=== PATIENT | female | born 1980 | race Hispanic/Latino ===

== ENCOUNTER 2018-04-07 13:38 | Inpatient (IN) | payer BC ==
[2018-04-07 13:43] VITALS: BMI 30.9
--- NOTE | 2018-04-07 16:06 | ED PDOC ---
HPI: Psych/Substance Abuse Time Seen by Provider: 04/07/18 15:21 Chief Complaint (Nursing): Psychiatric Evaluation Chief Complaint (Provider): Psychiatric Evaluation History Per: Patient History/Exam Limitations: no limitations Onset/Duration Of Symptoms: Days (x3 weeks) Additional Complaint(s): Zhane Marino is a 37 year old female with a past medical history of depression, who presents to the emergency department complaining of having increased feelings of depression for the past x3 weeks. She states she feels like not getting out of bed and that the world would be fine without her. Patient denies any direct SI or any suicidal attempts. 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 PMD: No provider Past Medical History Reviewed: Historical Data, Nursing Documentation, Vital Signs Vital Signs: Last Vital Signs Temp 97 F L 04/07/18 13:41 Pulse 85 04/07/18 13:41 Resp 18 04/07/18 13:41 BP 138/96 H 04/07/18 13:41 Pulse Ox 98 04/07/18 13:41 - Medical History PMH: Depression - Surgical History Surgical History: No Surg Hx - Family History Family History: States: Unknown Family Hx - Home Medications Home Medications: Ambulatory Orders Medication Instructions Recorded Cholecalciferol (Vitamin D3) 10,000 unit PO DAILY 04/07/18 [Vitamin D3] Olanzapine [Zyprexa] 5 mg PO HS 04/07/18 PARoxetine CR [Paxil CR] 25 mg PO HS 04/07/18 RX: Spironolactone [Aldactone] 25 mg PO DAILY 04/07/18 RX: diltiaZEM CD [Cardizem CD] 120 mg PO DAILY 04/07/18 Simvastatin 10 mg PO HS 04/07/18 - Allergies Allergies/Adverse Reactions: Allergies Allergy/AdvReac Type Severity Reaction Status Date / Time No Known Allergies Allergy Verified 04/07/18 13:44 Review of Systems ROS Statement: Except As Marked, All Systems Reviewed And Found Negative Psych: Positive for: Depression. Negative for: Suicidal ideation Physical Exam - Reviewed Nursing Documentation Reviewed: Yes Vital Signs Reviewed: Yes - Physical Exam Appears: Positive for: Non-toxic, No Acute Distress Head Exam: Positive for: ATRAUMATIC, NORMOCEPHALIC Skin: Positive for: Normal Color, Warm, Dry Cardiovascular/Chest: Positive for: Regular Rate, Rhythm. Negative for: Murmur Respiratory: Positive for: Normal Breath Sounds. Negative for: Respiratory Distress Neurologic/Psych: Positive for: Alert, Oriented (x3). Negative for: Motor/Sensory Deficits - Laboratory Results Result Diagrams: 04/07/18 16:15 04/07/18 16:15 - ECG O2 Sat by Pulse Oximetry: 98 (RA) Pulse Ox Interpretation: Normal Medical Decision Making Medical Decision Making: Initial Time: 15:52 Plan: --Alcohol Serum --CMP --Urine drug screen --CBC with differential --UA --Crisis evaluation Time: 18:07 Patient was seen by crisis who discussed case with Dr. Mcfadden; arrangements have been made for patient admission. Time: 18:09 CXR FINDINGS: LUNGS: No active pulmonary disease. PLEURA: No significant pleural effusion identified, no pneumothorax apparent. CARDIOVASCULAR: No atherosclerotic calcification present Normal. OSSEOUS STRUCTURES: No significant abnormalities. VISUALIZED UPPER ABDOMEN: Normal. OTHER FINDINGS: None. IMPRESSION: No active disease. Time: 18:37 EKG is NSR a 83 with no acute ischemic changes Scribe Attestation: Documented by Riaz Castro, acting as a scribe for Lavinia Wood PA-C. Provider Scribe Attestation: All medical record entries made by the Scribe were at my direction and personally dictated by me. I have reviewed the chart and agree that the record accurately reflects my personal performance of the history, physical exam, medical decision making, and the department course for this patient. I have also personally directed, reviewed, and agree with the discharge instructions and disposition. Disposition - Clinical Impression Clinical Impression: Major depression - Patient ED Disposition Is Patient to be Admitted: Yes - Disposition Disposition Time: 18:59 Condition: STABLE
[2018-04-07 16:33] LABS: SQUAMOUS EPITHIAL < 1 /hpf (0-5); URINE BACTERIA RARE (<OCC); URINE BILIRUBIN NEGATIVE (NEGATIVE); URINE BLOOD SMALL (NEGATIVE); URINE CLARITY CLEAR (Clear); URINE COLOR YELLOW (YELLOW); URINE GLUCOSE (UA) NEG (Normal); URINE LEUKOCYTE ESTERASE NEG Leu/uL (Negative); URINE PROTEIN NEGATIVE (NEGATIVE); URINE UROBILINOGEN 0.2-1.0 mg/dL (0.2-1.0)
[2018-04-07 16:36] LABS: BASO # 0.1 K/uL (0.0-0.2); BASO % 0.6 % (0.0-2.0); EOS % 0.3 % (0.0-4.0); HEMOGLOBIN 14.4 g/dL (12.0-16.0); LYMPH # 2.4 K/uL (1.0-4.3); LYMPH % 27.3 % (20.0-40.0); MEAN CELL VOLUME 90.4 fl (81.0-99.0); MEAN CORPUSCULAR HEMOGLOBIN 30.5 pg (27.0-31.0); MEAN CORPUSCULAR HGB CONC 33.8 g/dL (33.0-37.0); MEAN PLATELET VOLUME 7.1 fl (7.2-11.7); MONO # 0.7 K/uL (0.0-0.8); MONO % 7.7 % (0.0-10.0); NEUT # 5.6 K/uL (1.8-7.0); NEUT % 64.1 % (50.0-75.0); NRBC % 0.1 % (0.0-0.0); RBC 4.72 Mil/uL (3.80-5.20); RED CELL DISTRIBUTION WIDTH 13.3 % (11.5-14.5); WHITE BLOOD COUNT 8.7 K/uL (4.8-10.8)
[2018-04-07 16:43] LABS: ALB/GLOB RATIO 1.4 (1.0-2.1); ALBUMIN 4.7 g/dL (3.5-5.0); ALT/SGPT 31 U/L (9-52); AST/SGOT 22 U/L (14-36); BLOOD UREA NITROGEN 18 mg/dl (7-17); CALCIUM 9.7 mg/dL (8.4-10.2); GFR NON-AFRICAN AMERICAN > 60
[2018-04-07 16:55] LABS: BARBITURATES, UR NEGATIVE (NEGATIVE); BENZODIAZEPINES, UR NEGATIVE (NEGATIVE); OPIATES, UR NEGATIVE (NEGATIVE); PHENCYCLIDINE, UR NEGATIVE (NEGATIVE)
--- NOTE | 2018-04-07 18:12 | RAD ---
Date of service: 04/07/2018 HISTORY: medical clearance COMPARISON: No prior. FINDINGS: LUNGS: No active pulmonary disease. PLEURA: No significant pleural effusion identified, no pneumothorax apparent. CARDIOVASCULAR: No atherosclerotic calcification present Normal. OSSEOUS STRUCTURES: No significant abnormalities. VISUALIZED UPPER ABDOMEN: Normal. OTHER FINDINGS: None. IMPRESSION: No active disease.
[2018-04-07 20:24] VITALS: O2SAT 99
[2018-04-07] MEDS ORDERED: Magnesium Hydroxide Susp 30 ml UD PO PRN (20:43)
[2018-04-07] MEDS ORDERED: Alum-Mag Hydrox-Simethicone Susp (30 mL) PO PRN (20:43)
[2018-04-07] MEDS ORDERED: DiphenhydrAMINE 50 mg/ml Inj IM PRN (20:43)
--- NOTE | 2018-04-07 20:56 | PCM.BM ---
<Rosy Sarmiento - Last Filed: 04/07/18 20:54> Treatment Plan Problems - Problems identified on initial assessmt Hopelessness/Helplessness Date Initiated: 04/07/18 Time Initiated: 20:54 Assessment reference: NA Status: Active Altered Sleep Date Initiated: 04/07/18 Time Initiated: 20:55 Assessment reference: NA Status: Active Less than optimal nutrition Date Initiated: 04/07/18 Time Initiated: 20:55 Assessment reference: NA Status: Active Ineffective coping Date Initiated: 04/07/18 Time Initiated: 20:56 Assessment reference: NA Status: Active Treatment assets and liabiliti Patient Assests: cooperative, educated, self-reliant, ADL independent, good support system, negotiates basic needs, good past tx response, cognitively intact Patient Liabilities: live alone - Milieu Protocol Maintain good personal hygiene: daily Encourage regular showers, daily Remind patient to perform daily oral care, other Assist patient to perform ADL's (prn) Conduct patient checks and document Observation sheet: Q15 minutes Maintain personal safety: every shift Educate patient to report safety concerns to staff, every shift Monitor environment for contraband/sharps Medication safety: Monitor for expected outcome, potential side effects: every shift, Assess barriers to learning: every shift, Assess readiness for medication education: every shift <Slim Glasgow - Last Filed: 04/10/18 16:53> Family Contact Family involvement: Family/SO is involved Family contact: Patient agrees to contact, Family has been contacted by patient, Telephone contact initiated by staff Family contact name: Charito - Mother Family contacted how many times per week?: 5 Family contact comment: Truck Mechanic Apprentice spoke with pt's mother, Charito [phone]. on 04/09 and 04/10 to discuss pt's condition, medication changes and plans for aftercare. Pt's mother reported she speaks and sees pt regularly and was aware that pt has been depressed for some time. Pt's mother was not aware of pt's suicidality, but does not feel that pt would act on these impulses. Charito reported that pt recently began seeing a new psychiatrist and they do not have the best therapeutic relationship. Pt's mother reported that pt also becomes very depressed 7-10 days before her period begins. Visiting hours discussed and creative services writer explained that since pt's family lives far they can visit pt outside of visiting hours as per Susan Celeste. Truck Mechanic Apprentice also discussed with pt's mother staff's recommendation that pt attend a PHP following discharge. Staff recommended [facility] and concerns with missing work and finances discussed with pt's mother. Charito reported that she intended to visit pt on Friday, 04/11. [phone]. - Goals for Treatment Patient goals for treatment: Pt unable to provide specific goals, but voiced repeatedly that she wants her depression minimized by medications. Discharge/Continuing Care - Education Needs Education Needs: Family Medication, Family Diagnosis/Disease Process, Family Coping Skills, Family Community resources, Family Aftercare Safety Plan, Patient Medication, Patient Diagnosis/Disease Process, Patient Coping Skills, Patient Community resources, Patient Aftercare Safety Plan - Discharge Discharge Criteria: Tolerates medication w/o severe side effects, Free of Suicidal thoughts, Reduction of target symptoms Discharge to:: Home - Treatment Team Participation Patient/Family/SO Statement: 04/10/18 16:54 Pt seen in treatment team on 04/08/18. Pt presented as depressed and irritable, and spoke desperately about wanting to feel her depression decreased. Pt repor michelle poor energy, no motivation, and feeling like a prisoner to her depression. Medication changes of possible Effexor and Ability discussed instead of Prozac and Paxil as these two medications can throw pt into a manic episode.Dr. Lock discussed giving pt a preliminary diagnosis of Bipolar II. Discussed with Family/SO: Yes Was Patient/Family/SO present at Treatment Team Meeting: Yes <Vasu Lock - Last Filed: 04/13/18 13:37> - Diagnosis (1) Depression (emotion) Status: Acute Interventions: psychotherapy, pharmacotherapy 04/13/18 13:37
[2018-04-08 08:40] LABS: T4 12.4 ug/dl (5.5-11.0)
[2018-04-08] MEDS ORDERED: Venlafaxine 37.5 mg ER Cap PO STA (16:08)
--- NOTE | 2018-04-08 17:19 | PCM.PSYCH ---
Initial Psychiatric Evaluation - Initial Psychiatric Evaluation Chief Complaint (in patient's own words): I am unable to function History of Present Illness and Precipitating Events: pt is 37 ys old female with previous diagnosis of bipolar II disorder and cannabis and alcohol abuse in remission, pt reported has been for past three weeks increasingly depressed, low energy increased sleep , poor motivation anhedonia and poor interest private psychiatrist recently changed medication with increase in paxil dose, pt on day of evaluation started having passive suicidal ideation , was referred to ER for evaluation pt on unit continues to report passive suicidal ideation without active plan , tearful with low energy , poor motivation, denied command hallucinations Current Medications: Active Medications Generic Name Dose Route Start Last Admin Trade Name Freq PRN Reason Stop Dose Admin Acetaminophen 650 mg 04/07/18 20:43 Tylenol 325mg Tab PO Q4 PRN pain 4-7 Al Hydrox/Mg Hydrox/Simethicone 30 ml 04/07/18 20:43 Maalox Plus 30 Ml PO Q4 PRN Dyspepsia Diphenhydramine HCl 50 mg 04/07/18 20:43 Benadryl IM Q6 PRN Extrapyramidal S/S Unable PO Diphenhydramine HCl 50 mg 04/07/18 20:43 Benadryl PO Q6 PRN Extrapyramidal Symptoms Diphenhydramine HCl 50 mg 04/07/18 20:43 04/07/18 21:25 Benadryl PO 50 mg HS PRN Administration Sleep Gabapentin 100 mg 04/08/18 16:10 Neurontin PO TID PRN Anxiety Haloperidol 5 mg 04/07/18 20:43 Haldol PO Q4 PRN Agitation Haloperidol Lactate 5 mg 04/07/18 20:43 Haldol IM Q4 PRN Agitation, Unable to Take PO Lorazepam 1 mg 04/07/18 20:43 Ativan IM Q6 PRN Anxiety/Agitation,Unable PO Lorazepam 1 mg 04/07/18 20:43 04/08/18 08:29 Ativan PO 1 mg Q6 PRN Administration Anxiety/Agitation Magnesium Hydroxide 30 ml 04/07/18 20:43 Milk Of Magnesia PO HS PRN Constipation Olanzapine 7.5 mg 04/08/18 22:00 Zyprexa PO HS MARY Venlafaxine HCl 37.5 mg 04/09/18 09:00 Effexor Xr PO DAILY MARY Past Psychiatric History - Past Psychiatric History Explanation of prior treatment: pt has hx of one hospitalizations at age 14 History of ETOH/Drug Use: hx of alcohol and cannabis abuse Pertinent Medical Hx (Current Medical&Sleep Prob, Allergies): Allergies Allergy/AdvReac Type Severity Reaction Status Date / Time No Known Allergies Allergy Verified 04/07/18 13:44 Cholecalciferol (Vitamin D3) [Vitamin D3] 10,000 unit PO DAILY 04/07/18 Cyanocobalamin (Vitamin B-12) [Vitamin B-12] 1,000 mcg PO DAILY 04/07/18 Olanzapine [Zyprexa] 5 mg PO HS 04/07/18 PARoxetine CR [Paxil CR] 25 mg PO HS 04/07/18 Simvastatin 10 mg PO HS 04/07/18 Spironolactone [Aldactone] 25 mg PO DAILY 04/07/18 diltiaZEM CD [Cardizem CD] 120 mg PO DAILY 04/07/18 Mental Status Examination - Personal Presentation Personal Presentation: Looks stated age - Affect Affect: Constricted, Depressed - Motor Activity Motor Activity: Psychomotor Retardation - Reliability in Providing Information Reliability in Providing Information: Fair - Speech Speech: Relevant - Mood Mood: Depressed, Anxious - Formal Thought Process Formal Thought Process: Circumstantial - Obsessions/Compulsions Obsessions: No Compulsions: No - Cognitive Functions Orientation: Person, Place, Situation Sensorium: Alert - Strength & Assets Inventory Strength & Assets Inventory: Employment history - Limitations Additional comments: partial compliance DSM 5 DX - DSM 5 DSM 5 Diagnosis: bipolar ii disorder MRE depressed - Recommended/Plan of Treatment Treatment Recommendations and Plan of Treatment: zyprexa 7.5mg qhs effexor xr 37.5mg daily CBT group and supportive therapy internal medicine consult
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
[2018-04-08] MEDS: Pravastatin Sodium 20 MG TAB PO SCH (21:05)
[2018-04-09] MEDS: Cholecalciferol 1,000 INTLU TAB PO SCH (08:50)
[2018-04-09] MEDS: Venlafaxine 37.5 mg ER Cap PO SCH (08:54)
[2018-04-09] MEDS: diltiaZEM 120 mg/24 Hours CD Cap PO SCH (08:56)
--- NOTE | 2018-04-09 14:27 | PCM.PYCHPN ---
Psychiatric Progress Note - Psychiatric Progress Note Patient seen today, length of contact: Pt evaluated, case discussed w/ team, chart reviewed Patient Chief Complaint: "I'm depressed." Problems Identified/Issues Discussed: Pt continues to report feeling depressed w/ low mood, constricted affect, low energy and continued intermittent suicidal ideation w/o current plan/intent. She denies current adverse effects to medications. No AH/VH. Medication Change: No Medical Record Reviewed: Yes Consults ordered or reviewed: Medicine Mental Status Examination - Cognitive Function Orientation: Person, Place, Situation, Time Memory: Intact Attention: WNL Concentration: WNL Association: [facility] Fund of Knowledge: [facility] Decription of patient's judgement and insights: Fair I/J - Mood Mood: Depressed, Anxious - Affect Affect: Constricted, Depressed - Formal Thought Process Formal Thought Process: Circumstantial Psychotic Thoughts and Behaviors: Denies AH/VH - Suicidal Ideation Suicidal Ideation: Yes Plan: No current plan/intent - Homicidal Ideation Homicidal Ideation: No Goal/Treatment Plan - Goal/Treatment Plan Need for Continued Stay: Remain at risks for inpatient hospitalization, Severe depression anxiety Progress Toward Problem(s) and Goals/Treatment Plan: Bipolar II Disorder -Continue Zyprexa, Effexor -Individual and group therapy -Medicine consult -Psychoeducation -Disposition planning
[2018-04-09] MEDS: Pravastatin Sodium 20 MG TAB PO SCH (21:12)
[2018-04-10] MEDS: diltiaZEM 120 mg/24 Hours CD Cap PO SCH (08:56)
[2018-04-10] MEDS: Venlafaxine 37.5 mg ER Cap PO SCH (08:57)
[2018-04-10] MEDS: Cholecalciferol 1,000 INTLU TAB PO SCH (08:58)
[2018-04-10] MEDS ORDERED: Venlafaxine 37.5 mg ER Cap PO STA (11:37)
--- NOTE | 2018-04-10 14:04 | PCM.PYCHPN ---
Psychiatric Progress Note - Psychiatric Progress Note Patient seen today, length of contact: Pt evaluated, case discussed w/ team, chart reviewed Patient Chief Complaint: I still have no energy and feeling anxious Problems Identified/Issues Discussed: pt evaluated with treatment team continues to present with depressed mood , anhedonia, poor motivation and increased anxiety, discussed increasing effexor and zyprexa, no reported side effects, discussed with pt starting [facility] on discharge encouraged pt to attend groups, pt denied any current perceptual disturbances, denied active thoughts of self harm on the unit Medical Problems: pt has hx of one hospitalizations at age 14 DSM 5 Symptoms Update: bipolar II disorder depressed Medication Change: Yes (increase effxor ) Medical Record Reviewed: Yes Mental Status Examination - Cognitive Function Orientation: Person, Place, Situation, Time Memory: Intact Attention: WNL Concentration: WNL Association: WNL Fund of Knowledge: WNL - Mood Mood: Depressed, Anxious - Affect Affect: Constricted, Depressed - Speech Speech: Soft - Formal Thought Process Formal Thought Process: Circumstantial Psychotic Thoughts and Behaviors: pt denied perceptual disturbances, non elicited - Suicidal Ideation Suicidal Ideation: Yes - Homicidal Ideation Homicidal Ideation: No Goal/Treatment Plan - Goal/Treatment Plan Need for Continued Stay: Remain at risks for inpatient hospitalization, Severe depression anxiety Progress Toward Problem(s) and Goals/Treatment Plan: increase zyprexa 10mg qhs increase effexor xr 75mg daily CBT group and supportive therapy referral to [facility] on discharge
[2018-04-10] MEDS: Pravastatin Sodium 20 MG TAB PO SCH (21:09)
[2018-04-11] MEDS: Venlafaxine 75 mg ER Cap PO SCH (09:15)
[2018-04-11] MEDS: Cholecalciferol 1,000 INTLU TAB PO SCH (09:15)
--- NOTE | 2018-04-11 16:18 | PCM.PYCHPN ---
Psychiatric Progress Note - Psychiatric Progress Note Patient seen today, length of contact: Pt evaluated, case discussed w/ team, chart reviewed Patient Chief Complaint: feeling decreased motivation decreased mood reports both depression and anxiety pt was seen to have visit with person reported to be mother Problems Identified/Issues Discussed: alteration in mood alteration in coping Medical Problems: per chart pt with reported hx of hypertension Diagnostic Results: per psychiatry per medicine per nursing per social work per nursing DSM 5 Symptoms Update: decreased mood anxiety Medication Change: No Medical Record Reviewed: Yes Consults ordered or reviewed: pt seen by hospitalist Mental Status Examination - Cognitive Function Orientation: Person, Place, Situation, Time Memory: Intact Attention: WNL Concentration: WNL Association: WNL Fund of Knowledge: [facility] Decription of patient's judgement and insights: impaired - Mood Mood: Depressed, Anxious - Affect Affect: Constricted, Depressed - Speech Speech: Soft - Formal Thought Process Formal Thought Process: Circumstantial - Suicidal Ideation Suicidal Ideation: Yes Plan: no cam plan contracts for safety - Homicidal Ideation Homicidal Ideation: No Goal/Treatment Plan - Goal/Treatment Plan Need for Continued Stay: Remain at risks for inpatient hospitalization, Severe depression anxiety Progress Toward Problem(s) and Goals/Treatment Plan: inpt milieu vital signs and clinical observation per protocol and per clinical status review effexor with pt generally to address both depression and anxiety dose may need to gradually increased to 150mg po daily -pt with reported hx of hypertension staff will have to assess vital signs per clinical status discharge planning in progress Estimated Date of D/C: 04/16/18 - Smoking Cessation Smoking Cessation Initiated: No Reason for not providing: defers
[2018-04-11] MEDS: diltiaZEM 120 mg/24 Hours CD Cap PO SCH (17:35)
[2018-04-11] MEDS: Pravastatin Sodium 20 MG TAB PO SCH (21:01)
[2018-04-12] MEDS: Cholecalciferol 1,000 INTLU TAB PO SCH (09:35)
[2018-04-12] MEDS: Venlafaxine 75 mg ER Cap PO SCH (09:38)
[2018-04-12] MEDS: diltiaZEM 120 mg/24 Hours CD Cap PO SCH (09:41)
--- NOTE | 2018-04-12 17:19 | PCM.PYCHPN ---
Psychiatric Progress Note - Psychiatric Progress Note Patient seen today, length of contact: Pt evaluated, case discussed w/ team, chart reviewed Patient Chief Complaint: feeling less decreased motivation somewhat less depression and anxiety sleep improving had reported positive visit with parents today. staff report pt rx adherent has been seen about unit Problems Identified/Issues Discussed: alteration in mood alteration in coping Medical Problems: per chart pt with reported hx of hypertension Diagnostic Results: per psychiatry per medicine per nursing per social work per nursing DSM 5 Symptoms Update: somewhat improving mood still with anhedonia Medication Change: No Medical Record Reviewed: Yes Consults ordered or reviewed: pt seen by hospitalist Mental Status Examination - Cognitive Function Orientation: Person, Place, Situation, Time Memory: Intact Attention: WNL Concentration: WNL Association: [facility] Fund of Knowledge: [facility] Decription of patient's judgement and insights: impaired - Mood Mood: Depressed, Anxious - Affect Affect: Constricted, Depressed - Speech Speech: Soft - Formal Thought Process Formal Thought Process: Circumstantial - Suicidal Ideation Suicidal Ideation: No - Homicidal Ideation Homicidal Ideation: No Goal/Treatment Plan - Goal/Treatment Plan Need for Continued Stay: Remain at risks for inpatient hospitalization, Severe depression anxiety Progress Toward Problem(s) and Goals/Treatment Plan: inpt milieu vital signs and clinical observation per protocol and per clinical status review effexor with pt generally to address both depression and anxiety dose may need to gradually increased to 150mg po daily -pt with reported hx of hypertension staff will have to assess vital signs per clinical status discharge planning in progress Estimated Date of D/C: 04/16/18 - Smoking Cessation Smoking Cessation Initiated: No Reason for not providing: pt defers
[2018-04-12] MEDS: Pravastatin Sodium 20 MG TAB PO SCH (21:03)
[2018-04-13] MEDS: diltiaZEM 120 mg/24 Hours CD Cap PO SCH (08:38)
[2018-04-13] MEDS: Venlafaxine 75 mg ER Cap PO SCH (08:39)
[2018-04-13] MEDS: Cholecalciferol 1,000 INTLU TAB PO SCH (08:40)
--- NOTE | 2018-04-13 13:42 | PCM.PYCHPN ---
Psychiatric Progress Note - Psychiatric Progress Note Patient seen today, length of contact: Pt evaluated, case discussed w/ team, chart reviewed Patient Chief Complaint: I am worried I will not be able to make it again at work Problems Identified/Issues Discussed: pt evaluated, reported feeling less depressed, no reported side effects of medications yet continues to be anxious about possible failure at work, CBT provided , discussed with pt the negative automatic thoughts precipitating anxiety and the need to challenge them with more positive thoughts, pt receptive to therapy and able to verbalize more positive coping skills with anxiety,pt agreed to start [facility] focus on discharge encouraged pt to attend groups, pt denied any current perceptual disturbances, denied active thoughts of self harm on the unit Medical Problems: pt has hx of one hospitalizations at age 14 DSM 5 Symptoms Update: bipolar II disorder depressed Medication Change: No Medical Record Reviewed: Yes Mental Status Examination - Cognitive Function Orientation: Person, Place, Situation, Time Memory: Intact Attention: WNL Concentration: WNL Association: WNL Fund of Knowledge: WNL - Mood Mood: Depressed, Anxious - Affect Affect: Constricted, Depressed - Speech Speech: Soft - Formal Thought Process Formal Thought Process: Circumstantial - Suicidal Ideation Suicidal Ideation: No - Homicidal Ideation Homicidal Ideation: No Goal/Treatment Plan - Goal/Treatment Plan Need for Continued Stay: Remain at risks for inpatient hospitalization, Severe depression anxiety Progress Toward Problem(s) and Goals/Treatment Plan: zyprexa 10mg qhs effexor xr 75mg daily CBT group and supportive therapy referral to [facility] focus on discharge Estimated Date of D/C: 04/16/18
[2018-04-13] MEDS: Pravastatin Sodium 20 MG TAB PO SCH (21:05)
[2018-04-14] MEDS: diltiaZEM 120 mg/24 Hours CD Cap PO SCH (08:56)
[2018-04-14] MEDS: Venlafaxine 75 mg ER Cap PO SCH (08:57)
[2018-04-14] MEDS: Cholecalciferol 1,000 INTLU TAB PO SCH (08:57)
[2018-04-14 09:00] VITALS: BP 131/93; PULSE 85
[2018-04-14 09:13] VITALS: RESP 18; TEMP 98.1
--- NOTE | 2018-04-14 10:08 | PCM.PYCHDC ---
Mental Status Examination - Mental Status Examination Orientation: Person, Place, Situation Memory: Intact Mood: Neutral Affect: Broad Speech: Appropriate Attention: WNL Concentration: WNL Association: WNL Fund of Knowledge: WNL Formal Thought Process: No Impairment Description of patient's judgement and insight: partial insight, fair judgment Psychotic Thoughts and Behaviors: pt denied perceptual disturbances, non elicited Suicidal Ideation: No Current Homicidal Ideation?: No Discharge Summary - Discharge Note Reason for Hospitalization: pt is 37 ys old female with previous diagnosis of bipolar II disorder and cannabis and alcohol abuse in remission, pt reported has been for past three weeks increasingly depressed, low energy increased sleep , poor motivation anhedonia and poor interest private psychiatrist recently changed medication with increase in paxil dose, pt on day of evaluation started having passive suicidal ideation , was referred to ER for evaluation pt on unit continues to report passive suicidal ideation without active plan , tearful with low energy , poor motivation, denied command hallucinations Consultations:: List each consultation separately and include: 1. Reason for request. 2. Findings. 3. Follow-up Summary of Hospital Course include:: 1. Description of specific treatment plan utilized for patients during their course of treatmen. 2. Summarize the time- course for resolution of acute symptoms and/or regressed behaviors. 3. Describe issues identified and worked on during hospitalization. 4. Describe medication utilized. 5. Describe medical problems identified and treated. 6. Reassessment of suicide risk Summary of Hospital Course: pt on admission presented with depressed mood , poor energy and motivation, increased anxiety and irritability, passive suicidal ideation pt was placed on effexor, it was increased to 75mg daily, neurontin 100mg tid and zyprexa 10mg qhs pt was compliant with treatment, no reported side effects of medications, CBT provided, pt attended groups on discharge mental status was stable, pt denied any curent suicidal or homicidal ideation denied perceptual disturbances follow up arranged by social studies teacher at [facility] partial program - Diagnosis (1) Depression (emotion) Current Visit: Yes Status: Acute - Final Diagnosis (DSM 5) Condition upon Discharge: STABLE DSM 5: bipolar II disorder MRE depressed severe without psychotic features Disposition: HOME/ ROUTINE Follow-up Treatment Plan: zyprexa 10mg qhs effexor xr 75mg daily CBT group and supportive therapy referral to [facility] on discharge Prescriptions/Medication Reconciliation: Gabapentin [Neurontin] 100 mg PO TID PRN 30 Days #90 cap PRN Reason: Anxiety OLANZapine [Zyprexa] 10 mg PO HS 30 Days #30 tab Venlafaxine [Effexor XR] 75 mg PO DAILY 30 Days #30 cer - Antipsychotic Medications Pt discharged on 2 or more routine antipsychotic medications: No
== END 2018-04-14 11:40 | disposition home or self-care (01) | DRG 885 ==
LOC: H.ER 13:38 → H.ERHOLD 17:48 → H.PSYCH 20:40
PROVIDERS: ADMIT Psychiatry & Neurology Psychiatry; ATTEND Psychiatry & Neurology Psychiatry
PROC: GZHZZZZ Group Psychotherapy (ICD-10-PCS; principal; 2018-04-08)
PROC: GZ51ZZZ Individual Psychotherapy, Behavioral (ICD-10-PCS; 2018-04-08)
PROC: GZ56ZZZ Individual Psychotherapy, Supportive (ICD-10-PCS; 2018-04-08)
DX: F31.81 Bipolar II disorder (principal); R45.851 Suicidal ideations; F41.9 Anxiety disorder, unspecified; I10 Essential (primary) hypertension; Z81.8 Family history of other mental and behavioral disorders; E78.00 Pure hypercholesterolemia, unspecified; E78.5 Hyperlipidemia, unspecified; F10.11 Alcohol abuse, in remission; F12.11 Cannabis abuse, in remission